=== PATIENT | female | born 2000 | race Caucasian/White ===

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

== ENCOUNTER 2021-01-28 10:40 | Emergency (ER) | payer MEDICAID ==
[~2021-01-28] VITALS: Ht 167.6 cm; Wt 55.5 kg
[2021-01-28 10:54] VITALS: BP 107/52
[2021-01-28 12:13] LABS: CLARITY,URINE SLIGHTLY CLOUDY (Clear); COLOR,URINE YELLOW (Yellow); GLUCOSE, URINE NEGATIVE (Neg); KETONES,URINE NEGATIVE (Neg); LEUKOCYTE ESTERASE ,URINE NEGATIVE (Neg); NITRITES, URINE NEGATIVE (Neg); OCCULT BLOOD,URINE LARGE (Neg); PH,URINE 5.5 (4.8-8.0); PROTEIN,URINE TRACE mg/dl (Neg); UROBILINOGEN,URINE 0.2 E.U/dL (0.2-1.0)
[2021-01-28 12:14] LABS: UA COLLECTION TYPE CLN CATCH MIDSTREAM; URINE HCG NEGATIVE (NEG)
[2021-01-28] MEDS ORDERED: ondansetron/PF 4mg/2ml inj IV ONE (12:20)
[2021-01-28] MEDS ORDERED: normal saline 1000ML IV soln IVB ONE (12:20)
[2021-01-28 12:22] LABS: MUCUS STRANDS MANY /LPF (Neg); SQUAMOUS EPITHELIAL CELL,UR MANY /LPF (FEW)
[2021-01-28 12:23] LABS: RBC,URINE TNTC /HPF (0-2)
[2021-01-28 12:26] LABS: BACTERIA,URINE FEW /HPF (Neg); WBC,URINE 0-4 /HPF (0-4)
[2021-01-28 13:18] LABS: BASOPHILS % (AUTO) 0.2 % (0-1); EOSINOPHILS % (AUTO) 0.3 % (0-6); HEMATOCRIT 41.3 % (35.0-45.0); HEMOGLOBIN 13.6 g/dl (12.0-16.0); LYMPHOCYTES # (AUTO) 1.7 X10'3 (1.1-4.8); LYMPHOCYTES % (AUTO) 22.8 % (21-51); MEAN CORPUSCULAR HEMOGLOBIN 31.5 PG (27.0-31.0); MEAN CORPUSCULAR VOLUME 95.6 FL (78-98); MEAN PLATELET VOLUME 9.2 FL (7.4-10.4); MONOCYTES # (AUTO) 0.3 X10'3 (0-0.9); MONOCYTES % (AUTO) 4.6 % (2-12); NEUTROPHILS # (AUTO) 5.3 X10'3 (1.8-7.7); NEUTROPHILS % (AUTO) 72.1 % (42-75); PLATELET COUNT 226 X10'3 (140-440); RED BLOOD COUNT 4.32 X10'6 (4.20-5.60); RED CELL DISTRIBUTION WIDTH 13.2 % (11.5-14.5); WHITE BLOOD COUNT 7.4 X10'3 (4.5-11.0)
[2021-01-28 13:25] LABS: ALANINE AMINOTRANSFERASE 21 U/L (12-78); ALBUMIN 4.2 G/DL (3.4-5.0); ALBUMIN/GLOBULIN RATIO 1.1 (1.1-1.5); ALKALINE PHOSPHATASE 86 IU/L (20-180); ANION GAP 12 (8-16); ASPARTATE AMINO TRANSFERASE 15 U/L (10-37); BILIRUBIN,TOTAL 0.6 MG/DL (0.1-1.0); BLOOD UREA NITROGEN 6 MG/DL (7-18); CALCIUM 8.8 MG/DL (8.5-10.1); CHLORIDE 109 MMOL/L (99-107); CREATININE 0.75 MG/DL (0.40-0.90); GLUCOSE 104 MG/DL (70-104); LIPASE 106 U/L (73-393); POTASSIUM 3.7 MMOL/L (3.5-5.1); SODIUM 146 MMOL/L (135-145); TOTAL CARBON DIOXIDE 25.2 MMOL/L (24-32); eGFR > 90 ML/MIN
[2021-01-28] MEDS ORDERED: ONDA4TAB12 PO (13:52)
== END 2021-01-28 14:26 | disposition home or self-care (01) ==
LOC: ER 10:41
DX: A08.4 Viral intestinal infection, unspecified (principal); Z20.822 Contact with and (suspected) exposure to COVID-19; Z90.49 Acquired absence of other specified parts of digestive tract; Z88.1 Allergy status to other antibiotic agents; Z79.899 Other long term (current) drug therapy
CPT/HCPCS: 36415; 80053; 81001; 81025; 83690; 85025; 87635; 96361; 96374; 99283; C9803; J2405; J7030

== ENCOUNTER 2021-06-05 14:13 | Emergency (ER) | payer MEDICAID ==
[~2021-06-05] VITALS: Ht 167.6 cm; Wt 48.2 kg
[~2021-06-05 14:13] MED LIST changes: +ONDA4TAB12 PO
[2021-06-05 14:27] VITALS: BP 106/77
[2021-06-05] MEDS ORDERED: ONDA-103 PO (16:35)
== END 2021-06-05 16:54 | disposition home or self-care (01) ==
LOC: ER 14:14
DX: U07.1 COVID-19 (principal); Z90.49 Acquired absence of other specified parts of digestive tract; Z88.1 Allergy status to other antibiotic agents
CPT/HCPCS: 87635; 99283; C9803

== ENCOUNTER 2024-07-20 17:23 | Emergency (ER) | payer MEDICAID ==
[~2024-07-20] VITALS: Ht 167.6 cm; Wt 50.0 kg
[~2024-07-20 17:23] MED LIST changes: +ONDA-103 PO; +ONDA-243 PO; -ONDA4TAB12 PO
[2024-07-20 21:11] VITALS: BP 112/80; PULSE 90; RESP 18; TEMP 98.6; O2SAT 99
== END 2024-07-20 21:12 | disposition home or self-care (01) ==
LOC: ER 17:24
DX: R10.30 Lower abdominal pain, unspecified (principal); N83.202 Unspecified ovarian cyst, left side; Z88.1 Allergy status to other antibiotic agents; Z90.49 Acquired absence of other specified parts of digestive tract
CPT/HCPCS: 76830; 76856; 93976; 99284

== ENCOUNTER 2025-03-02 01:15 | Emergency (ER) | payer BC, MEDICAID ==
[2025-03-02] MEDS: normal saline 1000ml 1,000 ML IV ONE (01:34)
[2025-03-02] MEDS: ondansetron/PF 4mg/2ml inj IV ONE ×2 (01:35→02:39)
[2025-03-02 01:42] LABS: MEAN PLATELET VOLUME 7.6 FL (7.4-10.4); RED CELL DISTRIBUTION WIDTH 13.4 % (11.5-14.5)
[2025-03-02 02:26] LABS: CREATININE 0.66 MG/DL (0.40-0.90); TOTAL CARBON DIOXIDE 25.5 MMOL/L (24-32); eGFR > 90 ML/MIN
[2025-03-02 02:27] LABS: ETHANOL 242 MG/DL (<10)
--- NOTE | 2025-03-02 02:32 | Physician Documentation ---
History of Present Illness ~ Chief Complaint: ETOH Stated Complaint: INGESTION ERROR Time Seen by MD: 02:32 Primary Medical Doctor: DR. SANCHEZ Mode of Arrival: POV HPI Patient presents to the emergency room with vomiting. She endorses drinking significant alcohol this evening. By that has concern that she may aspirate Tetanus within 5 years?: Yes Medication Reconciliation Allergies: Coded Allergies: erythromycin base (Verified Adverse Reaction, Mild, NAUSEA, 07/20/24) Scheduled Clonidine Hcl* (Catapres*), 0.1 MG PO HS, (Reported) Hydrocodone Bit/Acetaminophen (Lortab Elixir), 7.5 ML PO Q6H Lamotrigine* (Lamictal*), 100 MG PO BID, (Reported) ONDANSETRON ODT 4mg tablet (Ondansetron Odt), 1 TABLET PO Q6H Ondansetron HCl (Ondansetron HCl), 1 TAB PO Q6H PRN Ondansetron ODT* (Zofran ODT*), 4 MG PO Q6H Scheduled PRN Famotidine (Pepcid), 1 TABLET PO BID PRN for abdominal pain Ondansetron Hcl (Zofran), 1 TABLET PO Q6H PRN for nausea Past Medical History Past Medical History: No Pertinent History Past Surgical History: appendectomy Other Past Family History: diverticulitis, colon cancer Alcohol Use: None Drug Use: none Lives with: Family Lives In: Home Past Social History: lives with mother and step father Review of Systems ROS All review of systems negative except as per HPI Physical Exam Vital Signs: Temperature: 97.8, Heart Rate: 87, Respiratory Rate: 18, BP: 110/90, Pulse Oximetry: 98 Oxygen Flow Rate: 0 Physical Exam General: Patient appears intoxicated in his responding appropriately, vomiting. Head: Normocephalic and atraumatic. Eyes: Conjunctival normal. EOMI. PERRL. ENT: Mucous membranes moist. Neck: Supple, trachea is midline. Chest: Clear to auscultation bilaterally without rales, rhonchi, or wheezes. There is no accessory muscle use or retractions. Cardiac: RRR without murmurs, gallops, or rubs. Abd: Soft, nondistended, nontender, with normoactive bowel sounds. No guarding, rebound, or rigidity. Progress Results/Orders Results/Orders Orders - SASCHA YANEZ MD Urinalysis, Cult If Indicated (03/02/25 01:23) Hcg, Ur Ql (03/02/25:23) Straight Cath For Urine Sample (03/02/25:23) Drug Screen, Urine (03/02/25 01:27) Completed Orders - SASCHA YANEZ MD Cbc/Diff (03/02/25:23) Lipase (03/02/25:23) CMP (03/02/25:23) Ethanol (03/02/25 01:27) Ondansetron Inj. (Zofran 4mg/2ml Vial) (03/02/25 01:30) Normal Saline 1000ml (0.9% Sodium Chlori (03/02/25 01:30) Medications Received in ER Medications (Trade) Dose Ordered Sig/Jaswant Route PRN Reason Start Time Stop Time Status Last Admin Dose Admin (Zofran 4mg/2ml vial) 4 mg ONCE ONCE IV 03/02/25 01:30 03/02/25 01:31 DC 03/02/25 01:35 4 MG Sodium Chloride 1,000 ml @ 1,000 mls/hr ONCE ONCE IV 03/02/25 01:30 03/02/25 02:29 DC 03/02/25 01:34 1,000 MLS/HR Vital Signs 03/02/25 03/02/25 01:19 01:44 Temp 97.8 Pulse 87 Resp 18 B/P (MAP) 110/90 Pulse Ox 98 O2 Flow Rate 0 Laboratory Tests Test 03/02/25 01:30 White Blood Count 6.5 Red Blood Count 4.00 L Hemoglobin 13.2 Hematocrit 37.9 Mean Corpuscular Volume 94.8 Mean Corpuscular Hemoglobin 33.1 H Mean Corpuscular Hemoglobin Concent 34.9 Red Cell Distribution Width 13.4 Platelet Count 318 Mean Platelet Volume 7.6 Neutrophils (%) (Auto) 52.4 Lymphocytes (%) (Auto) 42.0 Monocytes (%) (Auto) 4.6 Eosinophils (%) (Auto) 0.4 Basophils (%) (Auto) 0.6 Neutrophils # (Auto) 3.4 Lymphocytes # (Auto) 2.7 Monocytes # (Auto) 0.3 Eosinophils # (Auto) 0.0 Basophils # (Auto) 0.0 CBC Comment Sodium Level 148 H Potassium Level 3.6 Chloride Level 108 H Carbon Dioxide Level 25.5 Anion Gap 15 Blood Urea Nitrogen 6 L Creatinine 0.66 Estimated GFR/1.73 m2 > 90 BUN/Creatinine Ratio 9.1 L Glucose Level 111 H Calcium Level 8.4 L Total Bilirubin 0.3 Aspartate Amino Transf (AST/SGOT) 34 Alanine Aminotransferase (ALT/SGPT) 18 Alkaline Phosphatase 78 Total Protein 7.9 Albumin 4.1 Globulin 3.8 Albumin/Globulin Ratio 1.1 Lipase 75 Chemistry Comments Ethyl Alcohol Level 242 H Medical Decision Making Findings Patient presents to the emergency room with vomiting in the light of alcohol intoxication. She is responding to Zofran. Differential Dx:Considerations: Intoxication - ETOH, Intoxication - other drug, Sub. Abuse -continuous, Sub. Abuse-intermittent, Skull fracture, Fracture - other bone, Personality disorder, Closed head injury, Cervical spine injury, Abrasion, Confusion, Hematoma, Laceration, Foreign body, Dehydration, Encephalopathy, Hepatitis, Pancreatitis, Thiamine deficiency, Other Departure Disposition: HOME / SELF CARE / HOMELESS Impression: Primary Impression: Alcoholic gastritis Condition: Improved Discharge Instructions: Alcohol Intoxication Referrals: NO PRIMARY CARE PROVIDER (PCP) Prescriptions Ondansetron 8mg ODT (Ondansetron Odt) 8 Mg Tab.rapdis 1 TAB PO Q6H for nausea/vomiting for 3 Days, #12 TAB 0 Refills Prov: SASCHA YANEZ MD 03/02/25 Signature Scribe Signature: No scribe Attestation: The note accurately reflects work and decisions made by me.Sascha Yanez MD 03/02/25 02:37 SASCHA YANEZ MD Mar 02, 2025 02:32
[2025-03-02] MEDS ORDERED: ONDA-245 PO (02:37)
[2025-03-02 02:49] VITALS: BP 108/70; PULSE 87; RESP 16; TEMP 97.8; O2SAT 100
== END 2025-03-02 02:52 | disposition home or self-care (01) ==
LOC: ER 01:15
DX: K29.20 Alcoholic gastritis without bleeding (principal); Z88.1 Allergy status to other antibiotic agents; Z90.49 Acquired absence of other specified parts of digestive tract
CPT/HCPCS: 36415; 80053; 80320; 83690; 85025; 96361; 96374; 96376; 99284; J2405; J7030; A4615